=== PATIENT | female | born 1970 | race Caucasian/White ===

== ENCOUNTER 2016-12-29 13:58 | Emergency (ER) | payer MEDICAID, OTHER ==
[~2016-12-29] VITALS: Ht 149.9 cm; Wt 63.5 kg
[2016-12-29 14:26] VITALS: Ht 149.9 cm; Wt 63.5 kg
--- NOTE | 2016-12-29 17:25 | ERD ---
ER Documentation Chief Complaint Date/Time DATE: 12/29/16 TIME: 17:19 Chief Complaint Pt with L wrist and hand pain X 3 months. no injury reported. HPI This is a very pleasant 46-year-old female presents to emergency department complaining of left hand pain and wrist pain on the left side that has been present intermittently for the past 3 months. The patient indicates that in 2009 she broke her distal radius that required surgical plate to be put in and has subsequently been removed. She denies any trauma since that time but does state that for the past 3 months she has had pain most prominent over her left thumb when she attempts to move the thumb. She noticed a small bump on the left wrist that began 3 months prior to arrival which is tender to the touch, but has not changed in size. She has not taken any analgesic medication. She is right-handed dominant. She denies any numbness or tingling of her left upper extremity.She denies any chest pain or pressure that radiates to the neck arm back or jaw. She has had no fevers no shaking or chills ROS All systems reviewed and are negative except as per history of present illness. Physical Exam Vitals Vital Signs Date Time Temp Pulse Resp B/P Pulse Ox O2 Delivery O2 Flow Rate FiO2 12/29/16 14:26 97.8 75 18 140/83 99 Physical Exam Constitutional:Well-developed. Well-nourished. Respiratory: Not using accessory muscles of respiration.Lungs were clear to auscultation bilaterally. No rhonchi. No rales. No wheezing. Cardiovascular: Regular rate regular rhythm.No murmurs. No rubs were appreciated.S1, S2 normal. Distal pulses are palpable 2+ bilaterally. Muscle skeletal: Full range of motion of both the upper and lower extremities bilaterally.Normal muscle tone.No assymetrical calf tenderness or swelling. Well-circumscribed soft tender nodule over the dorsal aspect of the left first metatarsal. Flexion extension ulnar and radial deviation of the left wrist was normal. Patient was able to oppose all digits of the left upper extremity. Flexion extension of the left elbow was normal and this did not exacerbate pain. Normal lie to the left humeral head. Skin: No petechia, no purpura. No lesions on the palms or the soles of the feet. No maculopapular rash. NEURO: Patient was alert, awake, orientated x3.No facial droop. Gait observed and normal with no ataxia.Speech had regular rate and rhythm. No focal neurological deficits. Sensation intact of the radial ulnar and median nerve dissipation of the left upper extremity as well as the axillary nerve. FDP and FDS are intact of the left upper extremity. Procedures/MDM This is a 46-year-old female presents to the emergency department with pain of her left wrist and hand for the past 3 months. On physical exam she did appear to have a ganglion cyst. There is no signs of nerve injury, compartment syndrome and radiographic imaging of the left hand and wrist have been ordered and reviewed by myself as well as radiologist indicated there is no acute fracture. I did indicate to the patient that she would benefit from an outpatient MRI and to follow-up with a hand surgeon and undergo physiotherapy of a hand specialist due to her history of a remote fracture and adhesion buildup. The patient was given a prescription for Naprosyn. She was placed in a wrist brace. Afterwards patient reevaluated neurovascularly intact. The patient was discharged home in fair condition. They were instructed to return to the emergency department at any time if there was any worsening of their condition. The patient stated they would follow up with their PCP in the next 24-48 hours to initiate a suitable medication regimen under the care of their PCP as well as to allow their PCP to monitor any drug reactions. The patient was discharged home with prescriptions after they gave informed consent to the new medication. They were also fully informed by myself on the adverse effects and adverse drug interactions in order to provide adequate safeguards to prevent possible adverse reactions to medications. Departure Diagnosis: Primary Impression: Pain of hand Laterality: left Qualified Code: M79.642 - Pain of left hand Condition: Fair BRENNA HART Dec 29, 2016 17:25
[2016-12-29] MEDS ORDERED: NAPR-260 PO (17:40)
--- NOTE | 2016-12-29 18:11 | RADRPT ---
PROCEDURE: XR left Hand. CLINICAL INDICATION: Pain TECHNIQUE: Three views of the left hand were obtained. COMPARISON: No prior studies are available for comparison. FINDINGS: There is no acute osseous abnormality or evidence of fracture. There is prior ORIF of the distal ra dius with presence of volar plate and interlocking screws and healed post fracture deformity of the distal radius. There is no radiopaque foreign body. IMPRESSION: 1. No acute osseous abnormality. 2. Healed post fracture form of the distal radius with intact hardware. RPTAT: PP .Angel Lopez MD, Date Time Electronically viewed and signed by .Angel Lopez MD, on 12/29/2016 18:11 .d/
--- NOTE | 2016-12-29 18:12 | RADRPT ---
PROCEDURE: XR Wrist. CLINICAL INDICATION: Pain TECHNIQUE: AP, lateral, scaphoid and oblique views of the left wrist were performed. COMPARISON: No prior studies are available for comparison. FINDINGS: There is no acute osseous abnormality or evidence of fracture. There is prior ORIF of the distal ra dius with presence of volar plate and interlocking screws and healed post fracture deformity of the distal radius. Carpal alignment is maintained. The scaphoid is intact. Positive ulnar variance. Kasi nt ununited fragment versus ossicle at the ulnar styloid. There is no radiopaque foreign body. IMPRESSION: 1. No acute osseous abnormality. 2. Healed post fracture form of the distal radius with intact hardware. RPTAT: PP .Angel Lopez MD, Date Time Electronically viewed and signed by .Angel Lopez MD, on 12/29/2016 18:12 .d/
[2016-12-29 18:40] VITALS: BP 112/65; PULSE 88; RESP 20; TEMP 98
== END 2016-12-29 18:42 | disposition home or self-care (01) ==
LOC: FTE 13:58
DX: M79.642 Pain in left hand (principal)
CPT/HCPCS: 73110; 73130; Z7502